=== PATIENT | male | born 1985 ===

== ENCOUNTER 2017-12-07 05:38 | Emergency (ER) | payer SELFPAY ==
[2017-12-07 06:06] VITALS: TEMP 98; O2SAT 98
--- NOTE | 2017-12-07 06:15 | ED PDOC ---
HPI: Psych/Substance Abuse Time Seen by Provider: 12/07/17 05:51 Chief Complaint (Nursing): Alcohol Ingestion Chief Complaint (Provider): Alcohol Intoxication ED Caveat: Intoxicated History Per: Patient History/Exam Limitations: intoxication Onset/Duration Of Symptoms: Unknown Current Symptoms Are (Timing): Still Present Additional History Per: EMS, Law Enforcement Additional Complaint(s): Cesar is a 32 y/o male brought in by [facility] and [facility] for public intoxication. Patient was found at a [employer] with his pants down. Upon arrival to ED, patient is uncooperative and belligerent. PMD: None Provided Past Medical History Reviewed: Historical Data, Nursing Documentation, Vital Signs Vital Signs: Last Vital Signs Temp 98.0 F 12/07/17 05:43 Pulse 100 H 12/07/17 05:43 Resp 16 12/07/17 05:43 BP Pulse Ox 98 12/07/17 05:43 - Family History Family History: States: Unknown Family Hx - Allergies Allergies/Adverse Reactions: Allergies Allergy/AdvReac Type Severity Reaction Status Date / Time No Known Allergies Allergy Verified 12/07/17 06:06 Review of Systems Review Of Systems: ROS cannot be obtained secondary to pt's inabilty to answer questions. Physical Exam - Reviewed Nursing Documentation Reviewed: Yes Vital Signs Reviewed: Yes - Physical Exam Cardiovascular/Chest: Positive for: Regular Rate, Rhythm Respiratory: Positive for: Normal Breath Sounds Neurologic/Psych: Positive for: Alert, Other (slurred speech) - Laboratory Results Result Diagrams: 12/07/17 06:24 12/07/17 06:24 - ECG O2 Sat by Pulse Oximetry: 98 (RA) Pulse Ox Interpretation: Normal Medical Decision Making Medical Decision Making: Time: 6:07 Initial Impression: 32 y/o intoxicated male Initial Plan: --EKG --Alcohol Serum --CMP --Urine Drug Screen --CBC --Ativan --Haldol --4 Point Restraints --1:1 Observation --Accucheck --Patient placed under restraints with ativan and haldol due to high risk for elopement Scribe Attestation: Documented by Adriel Story, acting as a scribe for Willard Lee MD Provider Scribe Attestation: All medical record entries made by the Scribe were at my direction and personally dictated by me. I have reviewed the chart and agree that the record accurately reflects my personal performance of the history, physical exam, medical decision making, and the department course for this patient. I have also personally directed, reviewed, and agree with the discharge instructions and disposition. Disposition - Clinical Impression Clinical Impression: Alcohol intoxication - Disposition Disposition: Transfer of Care Disposition Time: 07:00 Condition: FAIR Additional Instructions: patient is medically and psychiatrically for incarceration Instructions: Alcohol Abuse and Alcoholism (DC) Forms: [employer] (Cymro)
[2017-12-07 06:56] LABS: BASO % 0.6 % (0.0-2.0); EOS # 0.1 K/uL (0.0-0.7); EOS % 2.2 % (0.0-4.0); HEMOGLOBIN 15.7 g/dL (12.0-18.0); LYMPH % 35.3 % (20.0-40.0); MEAN CELL VOLUME 82.7 fl (80.0-94.0); MEAN CORPUSCULAR HEMOGLOBIN 28.1 pg (27.0-31.0); MEAN PLATELET VOLUME 7.5 fl (7.2-11.7); MONO # 0.4 K/uL (0.0-0.8); MONO % 7.7 % (0.0-10.0); NEUT # 3.1 K/uL (1.8-7.0); NEUT % 54.2 % (50.0-75.0); NRBC % 0.1 % (0.0-0.0); RBC 5.59 Mil/uL (4.40-5.90); RED CELL DISTRIBUTION WIDTH 13.5 % (11.5-14.5); WHITE BLOOD COUNT 5.8 K/uL (4.8-10.8)
[2017-12-07 07:07] LABS: ALB/GLOB RATIO 1.4 (1.0-2.1); ALBUMIN 4.5 g/dL (3.5-5.0); ALT/SGPT 61 U/L (21-72); AST/SGOT 36 U/L (17-59); BLOOD UREA NITROGEN 9 mg/dl (9-20); CALCIUM 9.2 mg/dL (8.4-10.2); GFR AFRICAN-AMERICAN > 60; GFR NON-AFRICAN AMERICAN > 60
--- NOTE | 2017-12-07 07:11 | ED PDOC ---
- Laboratory Results Result Diagrams: 12/07/17 06:24 12/07/17 06:24 - ECG O2 Sat by Pulse Oximetry: 98 (RA) Medical Decision Making Medical Decision Making: received patient from Dr. Lee. Patient is pending sobriety from EtOH intoxication. patient seen by crisis and cleared for incarceration. Patient is medically stable now. Disposition Doctor Will See Patient In The: Office Counseled Patient/Family Regarding: Diagnosis, Need For Followup - Clinical Impression Clinical Impression: Alcohol intoxication - POA Present On Arrival: None - Disposition Disposition: Routine/Home Disposition Time: 11:08 Condition: IMPROVED Additional Instructions: patient is medically and psychiatrically for incarceration Forms: [employer] (Luxembourgish)
[2017-12-07 07:18] LABS: BARBITURATES, UR NEGATIVE (NEGATIVE); BENZODIAZEPINES, UR NEGATIVE (NEGATIVE); OPIATES, UR NEGATIVE (NEGATIVE); PHENCYCLIDINE, UR NEGATIVE (NEGATIVE)
--- NOTE | 2017-12-07 08:12 | RAD ---
HISTORY: ecchymosis COMPARISON: No prior. FINDINGS: LUNGS: The lungs are clear. PLEURA: No significant pleural effusion identified, no pneumothorax apparent. CARDIOVASCULAR: Normal. OSSEOUS STRUCTURES: No significant abnormalities. VISUALIZED UPPER ABDOMEN: Normal. OTHER FINDINGS: None. IMPRESSION: No active pulmonary disease.
[2017-12-07 11:51] VITALS: BP 124/52; PULSE 92; RESP 18
--- NOTE | 2017-12-08 13:30 | CARD ---
APPROVED REPORT EKG Measurement Heart [id number] <Conclusion> Normal sinus rhythm Right bundle branch block Left posterior fascicular block Bifascicular block Inferior infarct, age undetermined Abnormal ECG
== END 2017-12-07 11:40 | disposition home or self-care (01) ==
LOC: H.ER 05:38
DX: F10.129 Alcohol abuse with intoxication, unspecified (principal); Y90.8 Blood alcohol level of 240 mg/100 ml or more
CPT/HCPCS: 71045; 80053; 82948; 85025; 93005; 99284; G0480